=== PATIENT | male | born 1945 | race Caucasian/White ===

== ENCOUNTER → 2019-09-26 | Outpatient (REF) | payer MEDICARE | LOC: M LAB LCGH 14:15 | PROVIDERS: ATTEND Physician Assistant | DX: C44.01 Basal cell carcinoma of skin of lip (principal) ==

== ENCOUNTER → 2020-11-26 | Outpatient (REF) | payer MEDICARE | LOC: M LAB REF 14:05 | PROVIDERS: ATTEND Physician Assistant | DX: L57.0 Actinic keratosis (principal) | CPT/HCPCS: 11102; 17000; 17003; 88305; G0463 ==

== ENCOUNTER → 2022-11-10 | Outpatient (REF) | payer MEDICARE | LOC: M SFHCDERM 14:14 | PROVIDERS: ATTEND Physician Assistant | DX: C44.329 Squamous cell carcinoma of skin of other parts of face (principal) ==

== ENCOUNTER → 2023-02-05 | Outpatient (REF) | payer MEDICARE | LOC: M SFHCDERM 18:12 | PROVIDERS: ATTEND Dermatology | DX: C44.319 Basal cell carcinoma of skin of other parts of face (principal) ==

== ENCOUNTER → 2023-06-09 | Outpatient (REF) | payer MEDICARE ==
[2023-06-09 14:44] LABS: APPEARANCE, URINE CLEAR (CLEAR); BACTERIA, URINE AUTO NEGATIVE (NEGATIVE); BILIRUBIN, URINE AUTO NEGATIVE (NEGATIVE); BLOOD, URINE BLOOD 1+ (NEGATIVE); COLOR, URINE YELLOW (YELLOW); GLUCOSE, URINE (UA) AUTO NEGATIVE (NEGATIVE); KETONE, URINE AUTO NEGATIVE (NEGATIVE); LEUKOCYTE ESTERASE, URINE AUTO NEGATIVE (NEGATIVE); NITRITE, URINE AUTO NEGATIVE (NEGATIVE); PROTEIN, URINE AUTO NEGATIVE (NEGATIVE); RBC, URINE AUTO 1 /HPF (0-3); SPECIFIC GRAVITY URINE AUTO 1.018 (1.002-1.035); SQUAMOUS EPITHELIAL CELL UR AU 0 /HPF (0-6); UROBILINOGEN, URINE AUTO 0.2 mg/dL (0.0-2.0); WBC, URINE AUTO 1 /HPF (0-3)
== END ==
LOC: M SMT 13:22
PROVIDERS: ATTEND Urology
DX: R33.9 Retention of urine, unspecified (principal)

== ENCOUNTER → 2024-03-02 | Outpatient (CLI) | payer OTHER, MEDICARE | LOC: M PLAIMG 07:30 | PROVIDERS: ATTEND Physical Medicine & Rehabilitation Pain Medicine | DX: M54.12 Radiculopathy, cervical region (principal); M43.24 Fusion of spine, thoracic region ==